=== PATIENT | female | born 1940 | race Caucasian/White ===

== ENCOUNTER → 2016-03-27 | Outpatient (CLI) | payer MEDICARE, OTHER ==
--- NOTE | 2016-03-27 15:12 | MRI ---
EXAM DESCRIPTION: MR THORACIC SPINE WITHOUT IV CONTRAST CLINICAL HISTORY: AGE RELATED OSTEOPOROSIS W CURRENT PATHOLOGICAL FX COMPARISON: None Available. TECHNIQUE: MRI thoracic is performed according to our usual protocol. FINDINGS: Four level vertebroplasty involving T8, T9, T10 and T11. Remaining vertebral body heights are unremarkable. There is edema seen within the T8, T9 and T10 vertebral bodies surrounding the methylmethacrylate. This could be the cause of patient's pain. There is retropulsion of the T11 vertebral body into the spinal canal. The midline diameter of the spinal canal at this level is narrowed to 8 mm. Minimal thoracic spinal cord contact. No evidence of myelomalacia at this time. The remaining vertebral body levels demonstrate no evidence of significant disk protrusion, retropulsion or spinal cord contact. Bilateral neural foraminal narrowing is noted at T7-8 through T10-T11. IMPRESSION: Patient is status post T8 through T11 vertebral plasties. There it is minimal edema within the T8, T9 and T10 vertebral bodies which is suggesting a nonhealed fracture. There is retropulsion of T11 into the spinal canal with thoracic spinal cord contact. The AP diameter of the spinal canal is narrowed to 8 mm. Bilateral neural foraminal narrowing from T7-8 through T10-T11. The remaining study is unremarkable. Electronically signed by: Yung Deras MD 03/27/2016 15:10
== END ==
LOC: MRI 11:48
PROVIDERS: ATTEND Neurological Surgery
DX: M80.08XG Age-related osteoporosis with current pathological fracture, vertebra(e), subsequent encounter for fracture with delayed healing (principal); Z98.890 Other specified postprocedural states

== ENCOUNTER → 2016-05-06 | Outpatient (CLI) | payer MEDICARE, OTHER | END | disposition home or self-care (01) | LOC: GMA 17:41 | PROVIDERS: ATTEND Nurse Practitioner Family | DX: N39.0 Urinary tract infection, site not specified (principal) ==

== ENCOUNTER → 2017-05-14 | Outpatient (CLI) | payer MEDICARE, OTHER | LOC: GMAH 10:39 | PROVIDERS: ATTEND Family Medicine | DX: E03.9 Hypothyroidism, unspecified (principal); E78.5 Hyperlipidemia, unspecified; I10 Essential (primary) hypertension ==

== ENCOUNTER 2018-02-12 17:53 | Emergency (ER) | payer MEDICARE, OTHER ==
--- NOTE | 2018-02-12 18:20 | ED.PDOC ---
History of Present Illness - General Chief Complaint: Problem Stated Complaint: sudden bladder pain Time Seen by Provider: 02/12/18 18:07 Source: patient Exam Limitations: no limitations - History of Present Illness Initial Comments: PT WENT TO URGENT CARE FOR PAIN OVER BLADDER. HAS HX OF UTI IN PAST AND THIS FEELS SIMILAR. SHE BEGAN TO FEEL BAD THERE C/O "JUST NOT FEELING WELL" AND FACIAL FLUSHING. Timing/Duration: other - ONSET TODAY Severity: mild Improving Factors: nothing Worsening Factors: nothing Associated Symptoms: other - GENERAL MALAISE Allergies/Adverse Reactions: Allergies Iodine Allergy (Severe, Verified 02/12/18 18:09) Hydrocodone Allergy (Intermediate, Verified 02/12/18 18:09) Other oral edema Home Medications: Ambulatory Orders Amlodipine Besylate-Benazepril [Lotrel 5-10 mg] 1 cap PO DAILY 10/16/13 Levothyroxine Sodium 50 mcg PO DAILY 10/16/13 Lovastatin 40 mg PO DAILY 10/16/13 Nadolol 40 mg PO DAILY 02/12/18 Review of Systems - Review of Systems Constitutional: Denies: chills, fever EENTM: States: no symptoms reported Respiratory: States: cough - ONSET WHILE IN ER Cardiology: Denies: chest pain, palpitations, syncope Gastrointestinal/Abdominal: States: abdominal pain, vomiting. Denies: nausea Genitourinary: Denies: dysuria, frequency, hematuria Musculoskeletal: Denies: back pain Skin: States: no symptoms reported Neurological: States: no symptoms reported Endocrine: States: no symptoms reported Hematologic/Lymphatic: States: no symptoms reported Past Medical History (General) - Patient Medical History Hx Congestive Heart Failure: No Hx Hypertension: Yes Hx Thyroid Disease: Yes Hx Gastroesophageal Reflux: Yes - Vaccination History Hx Influenza Vaccination: Yes Hx Pneumococcal Vaccination: Yes - Social History Hx Tobacco Use: No Hx Alcohol Use: No Family Medical History - Family History Mother Family History: Unknown Physical Exam - Physical Exam General Appearance: Alert, No apparent distress Eye Exam: bilateral normal Ears, Nose, Throat: hearing grossly normal, normal ENT inspection Neck: non-tender, supple Respiratory: lungs clear, normal breath sounds, no respiratory distress Cardiovascular/Chest: regular rate, rhythm, no murmur Gastrointestinal/Abdominal: normal bowel sounds, non tender, soft, no organomegaly Back Exam: normal inspection, no CVA tenderness Extremity: normal range of motion, normal inspection Neurologic: alert, normal mood/affect Skin Exam: normal color, warm/dry Lymphatic: no adenopathy Progress - Progress Progress: 02/12/18 20:00 FEELS NL, BP BETTER. Departure - Departure Clinical Impression: Elevated blood pressure reading, Bladder spasm Hypertension Qualifiers: Hypertension type: essential hypertension Qualified Code(s): I10 - Essential ( primary) hypertension Time of Disposition: 20:03 Disposition: Discharge to Home or Self Care Condition: Good Departure Forms: ED Discharge - Pt. Copy, Patient Portal Self Enrollment Instructions: Bladder Spasms, High Blood Pressure (DC) Referrals: Eric Zamora MD [Primary Care Provider] - 1-2 Weeks Home Medications: Ambulatory Orders Amlodipine Besylate-Benazepril [Lotrel 5-10 mg] 1 cap PO DAILY 10/16/13 Levothyroxine Sodium 50 mcg PO DAILY 10/16/13 Lovastatin 40 mg PO DAILY 10/16/13 Nadolol 40 mg PO DAILY 02/12/18
[2018-02-12] MEDS: cloNIDine HCL 0.1 MG TAB PO ONE (19:30)
[2018-02-12 20:02] VITALS: BP 148/70; TEMP 98.2; O2SAT 98
== END 2018-02-12 20:07 | disposition home or self-care (01) ==
LOC: ER 17:53
DX: I10 Essential (primary) hypertension (principal); N32.89 Other specified disorders of bladder; Z87.440 Personal history of urinary (tract) infections; E07.9 Disorder of thyroid, unspecified; K21.9 Gastro-esophageal reflux disease without esophagitis; Z79.899 Other long term (current) drug therapy; Z91.041 Radiographic dye allergy status; Z88.5 Allergy status to narcotic agent

== ENCOUNTER → 2018-04-27 | Outpatient (CLI) | payer MEDICARE, OTHER ==
--- NOTE | 2018-04-27 18:04 | MRI ---
EXAM DESCRIPTION: Lumbar Spine w/o Contrast : Magnetic Resonance Imaging. CLINICAL HISTORY: LOW BACK PAIN COMPARISON: MRI scan lumbar spine without contrast 11/01/2015. TECHNIQUE: Multiplanar, multiple standard sequences, non contrast MRI, lumbar spine. FINDINGS: Significant compression type vertebral body fracture of the T12 segment, greater than 50% centrally. Unusual appearance of the superior vertebral body, inferior to the endplate, which appears to contain mostly fluid except for the posterior and lateral marrow which is part of the retropulsed segment. The superior endplate is preserved and continues as the superior aspect of both pedicles. Marrow edema remains in the anterior aspect of the vertebral body. Marrow edema extending into the bilateral pedicles. Approximately 4 mm retropulsion of the posterior mid and superior vertebral body. Not touching the cord or conus which terminates at this level. T11-12 disc is minimally desiccated. Bilateral foraminal stenosis but no canal stenosis posterior to the disc. T12-L1: Superior disc expands into the concavity of the inferior T12 endplate. Minimal desiccation. No bulging. Retropulsion is causing mild bilateral foraminal narrowing. Minimal hypertrophy of the ligaments. Facet joints are unremarkable. L1-L2: No disc desiccation with disc space preserved. Mild bilateral foraminal narrowing the canal is patent. Posterior elements unremarkable. Progressive compression of the L3 vertebral body since the prior study centrally greater than 75%. Retropulsion of the superior endplate 4 mm and retropulsion of the inferior endplate 3 mm. This is abutting the thecal sac superiorly and inferiorly. No marrow edema in the vertebral body or posterior elements. L2-L3: Disc desiccation and posterior disc migration with the retropulsed superior L3 endplate. Desiccation of the disc. Bilateral moderate foraminal narrowing more on the left. Hypertrophy ligaments and hypertrophy and degenerative facets impressing on the posterior thecal sac AP canal diameter 7 mm. L3-L4: Disc desiccation posterior disc osteophyte bulge into the canal. Flavum ligament and facet arthrosis and hypertrophy AP canal diameter 7 mm. Disc and facet spur complex encroaching on the bilateral foramina with stenosis and compromise of the bilateral L3 nerves. L4-L5: Disc desiccation and minimal disc space loss. Concavity in the superior 5 endplate. Posterior broad-based 4 mm disc bulge. Minimal facet arthrosis and flavum ligament hypertrophy. Mild canal narrowing. Mild to moderate narrowing of the left foramen and borderline foraminal stenosis on the right. L5-S1: Disc desiccation and mild to moderate disc space loss. Anterior Schmorl's nodes in both endplates. Posterior broad-based disc bulge 5 mm more in the midline impressing on the thecal sac. Also effacing the left subarticular recess. AP canal diameter 10 mm. Mild right foraminal narrowing and moderate to severe left foraminal narrowing. Posterior Modic type II endplate reactive changes. Mild levoscoliosis. Paravertebral soft tissues diffuse paraspinal muscle atrophy and minimal psoas muscle atrophy.. Normal marrow signal in the remaining vertebral bodies and the posterior elements. Vertebral bodies are not compressed at any level. IMPRESSION: 1. Subacute compression fracture of the T12 vertebral body with significant retropulsion of the superior and inferior endplate. Fluid-filled space visualized between the superior endplate and the marrow mostly in the inferior vertebral body and posterior. Marrow edema in the bilateral pedicles. No canal stenosis. Not present on the prior study 2. Progressive compression of the L3 vertebral body since the prior study with mild to moderate canal stenosis at the level of the superior and inferior endplates which are retropulsed into the canal. Contribution also from the posterior elements. 3. Disc desiccation and bilateral foraminal stenosis at L3-4. This is progressed since the prior study partially due to progressive loss of height of L3. Bilateral moderate foraminal narrowing at L2-3. 4. Disc desiccation and posterior bulging is progressed at L5-S1 with progressive left foraminal stenosis and compromise of the left L5 nerve. Borderline canal stenosis due to progressive disc bulge. Also effacing the left subarticular recess with possible compromise left S1 nerve. Electronically signed by: Aldair Hooks MD 04/27/2018 6:[address] [facility]
== END ==
LOC: MRI 09:00
PROVIDERS: ATTEND Family Medicine
DX: S32.030A Wedge compression fracture of third lumbar vertebra, initial encounter for closed fracture (principal); S22.080A Wedge compression fracture of T11-T12 vertebra, initial encounter for closed fracture; M51.36 Other intervertebral disc degeneration, lumbar region; M51.87 Other intervertebral disc disorders, lumbosacral region

== ENCOUNTER → 2018-07-13 | Outpatient (CLI) | payer MEDICARE, OTHER | LOC: GMAH 10:34 | PROVIDERS: ATTEND Family Medicine | DX: I10 Essential (primary) hypertension (principal) ==